=== PATIENT | female | born 1935 | race Caucasian/White ===

== ENCOUNTER 2017-12-02 10:43 | Inpatient (IN) | payer MEDICARE, OTHER ==
[2017-12-02] MEDS ORDERED: ACETAMINOPHEN 325 MG TAB PO (11:30)
[2017-12-02] MEDS ORDERED: ONDANSETRON 4 MG INJ IV ×2 (11:30→17:30)
[2017-12-02 12:20] LABS: WHITE BLOOD COUNT 9.9 10^3/ul (4.8-10.8)
[2017-12-02 12:20] LABS: HEMATOCRIT 29.8 % (37.0-47.0); HEMOGLOBIN 9.2 g/dl (12.0-16.0); MEAN CORPUSCULAR HEMOGLOBIN 30.2 pg (29.0-33.0); MEAN CORPUSCULAR HGB CONC 30.9 g/dl (32.0-37.0); MEAN CORPUSCULAR VOLUME 97.7 fl (82.0-101.0); MEAN PLATELET VOLUME 9.6 fl (7.4-10.4); PLATELET COUNT 402 10^3/UL (140-415); RED BLOOD COUNT 3.05 10^6/ul (4.20-5.40); RED CELL DISTRIBUTION WIDTH 16.7 % (11.5-14.5)
[2017-12-02 12:30] LABS: ADD MAN DIFF? YES; POSITIVE DIFF @See below
[2017-12-02] MEDS: ASPIRIN 81 MG TAB PO (12:38)
[2017-12-02 12:43] LABS: ANION GAP 11 (8-16); BLOOD UREA NITROGEN 20 mg/dl (7-20); CALCIUM 9.4 mg/dl (8.4-10.2); CARBON DIOXIDE 33 mmol/L (21-31); CHLORIDE 93 mmol/L (97-110); CREATININE 0.46 mg/dl (0.44-1.00); GLUCOSE 114 mg/dl (70-220); POTASSIUM 4.4 mmol/L (3.5-5.1); SODIUM 133 mmol/L (135-144)
[2017-12-02 12:56] LABS: TROPONIN-I < 0.012 ng/ml (0.00-0.12)
[2017-12-02 13:22] LABS: ANISOCYTOSIS 1+ (0-0); BAND NEUTROPHILS #M 0.1 10^3/ul (0.0-0.6); BAND NEUTROPHILS % (M) 2 % (0-4); GIANT THROMBO% (M) 2 % (0-0); LYMPHOCYTES #M 2.7 10^3/ul (0.8-2.9); LYMPHOCYTES % (M) 28 % (15-51); MONOCYTE #M 0.4 10^3/ul (0.3-0.9); MONOCYTES % (M) 5 % (0-11); PLATELET ESTIMATE NORMAL; POLYCHROMASIA 2+ (0-0); REACTIVE LYMPHOCYTES #M 0.1 10^3/ul (0.0-0.0); REACTIVE LYMPHOCYTES% (M) 2 % (0-0); SEG NEUT #M 6.2 10^3/ul (1.6-7.5); SEGMENTED NEUTROPHILS (M) % 63 % (39-77); SMUDGE%M 10 % (0-0)
[2017-12-02 17:09] LABS: CREATINE KINASE < 20 IU/L (23-200)
[2017-12-02 17:21] LABS: TROPONIN-I < 0.012 ng/ml (0.00-0.12)
[2017-12-02] MEDS ORDERED: NACL 0.9% 3 ML SYG IV (17:30)
[2017-12-02] MEDS ORDERED: NITROGLYCERIN (SL) 0.4 MG TAB SL (17:30)
[2017-12-02] MEDS ORDERED: DOCUSATE SODIUM 100 MG CAP PO (17:30)
[2017-12-02 17:31] LABS: LACTATE DEHYDROGENASE 377 IU/L (313-618)
[2017-12-02] MEDS: BUSPIRONE 5 MG TAB GTB (21:00)
[2017-12-02] MEDS ORDERED: FAMOTIDINE 20 MG TAB PO (21:00)
[2017-12-02] MEDS: ACETAMINOPHEN 325 MG TAB PO (21:48)
[2017-12-02] MEDS: PANTOPRAZOLE (EC) 40 MG TAB PO (21:48)
[2017-12-02] MEDS: QUETIAPINE 25 MG TAB PO (21:48)
[2017-12-02] MEDS: AL HYDROX/MG HYDROX/SIMETH 30 ML CUP PO (21:49)
[2017-12-02 23:58] LABS: CK-MB 0.63 ng/ml (0.0-2.4)
[2017-12-03 00:02] LABS: CREATINE KINASE < 20 IU/L (23-200); TROPONIN-I < 0.012 ng/ml (0.00-0.12)
[2017-12-03] MEDS: PANTOPRAZOLE (EC) 40 MG TAB PO (06:45)
[2017-12-03] MEDS: LEVOTHYROXINE 75 MCG TAB PO (06:45)
[2017-12-03] MEDS ORDERED: PENDING SANTYL ORDER FOR WOUND CARE XX (08:00)
[2017-12-03 08:32] LABS: ADD MAN DIFF? NO
[2017-12-03 08:38] LABS: BASOPHILS % 0.2 % (0.0-2.0); EOSINOPHILS # 0.2 10^3/ul (0.0-0.5); EOSINOPHILS % 2.2 % (0.0-7.0); MEAN CORPUSCULAR HEMOGLOBIN 30.2 pg (29.0-33.0); MEAN CORPUSCULAR HGB CONC 30.8 g/dl (32.0-37.0); MEAN CORPUSCULAR VOLUME 98.1 fl (82.0-101.0); MEAN PLATELET VOLUME 9.8 fl (7.4-10.4); MONOCYTE # 0.7 10^3/ul (0.3-0.9); MONOCYTES % 8.2 % (0.0-11.0); NEUTROPHIL # 4.8 10^3/ul (1.6-7.5); NEUTROPHILS % 54.4 % (39.0-77.0); PLATELET COUNT 346 10^3/UL (140-415); RED BLOOD COUNT 2.65 10^6/ul (4.20-5.40); RED CELL DISTRIBUTION WIDTH 17.1 % (11.5-14.5)
[2017-12-03 08:38] LABS: WHITE BLOOD COUNT 8.8 10^3/ul (4.8-10.8)
[2017-12-03] MEDS: ASPIRIN 81 MG TAB PO (08:39)
[2017-12-03] MEDS: BUSPIRONE 5 MG TAB GTB ×2 (08:39→21:12)
[2017-12-03 09:06] LABS: ALANINE AMINOTRANSFERASE 28 IU/L (13-69); ALBUMIN/GLOBULIN RATIO 0.78; ALKALINE PHOSPHATASE 91 IU/L (42-121); ANION GAP 10 (8-16); ASPARTATE AMINO TRANSFERASE 21 IU/L (15-46); BLOOD UREA NITROGEN 20 mg/dl (7-20); CARBON DIOXIDE 31 mmol/L (21-31); CHLORIDE 98 mmol/L (97-110); CREATININE 0.53 mg/dl (0.44-1.00); GLUCOSE 130 mg/dl (70-220); MAGNESIUM 1.9 mg/dl (1.7-2.5); SODIUM 135 mmol/L (135-144); TOTAL PROTEIN 6.8 g/dl (6.1-8.1)
[2017-12-03] MEDS: COLLAGENASE 30 GM TUBE TOP (16:41)
[2017-12-03] MEDS: QUETIAPINE 25 MG TAB PO (21:12)
[2017-12-03] MEDS: ACETAMINOPHEN 325 MG TAB PO (21:17)
[2017-12-04] MEDS: PANTOPRAZOLE (EC) 40 MG TAB PO (06:14)
[2017-12-04] MEDS: LEVOTHYROXINE 75 MCG TAB PO (06:14)
[2017-12-04 08:18] LABS: ADD MAN DIFF? NO
[2017-12-04 08:51] LABS: IRON 27 ug/dl (35-150)
[2017-12-04 08:55] LABS: ANION GAP 12 (8-16); BLOOD UREA NITROGEN 18 mg/dl (7-20); CALCIUM 8.9 mg/dl (8.4-10.2); CARBON DIOXIDE 27 mmol/L (21-31); CHLORIDE 102 mmol/L (97-110); CREATININE 0.44 mg/dl (0.44-1.00); GLUCOSE 127 mg/dl (70-220); LACTATE DEHYDROGENASE 467 IU/L (313-618); POTASSIUM 4.1 mmol/L (3.5-5.1); SODIUM 137 mmol/L (135-144)
[2017-12-04] MEDS: ASPIRIN 81 MG TAB PO (08:57)
[2017-12-04] MEDS: ACETAMINOPHEN 325 MG TAB PO ×2 (08:57→20:26)
[2017-12-04] MEDS: BUSPIRONE 5 MG TAB GTB ×2 (08:57→20:28)
[2017-12-04 09:00] LABS: % IRON SATURATION 12 % SAT (22-52); TOTAL IRON BINDING CAPACITY 224 ug/dl (241-421)
[2017-12-04 09:56] LABS: FOLATE > 20.0 ng/ml (2.8-20.0)
[2017-12-04 10:19] LABS: BASOPHILS % 0.2 % (0.0-2.0); EOSINOPHILS # 0.2 10^3/ul (0.0-0.5); EOSINOPHILS % 2.4 % (0.0-7.0); HEMOGLOBIN 8.3 g/dl (12.0-16.0); LYMPHOCYTES % 36.2 % (15.0-51.0); MEAN CORPUSCULAR HEMOGLOBIN 30.5 pg (29.0-33.0); MEAN CORPUSCULAR HGB CONC 30.7 g/dl (32.0-37.0); MEAN CORPUSCULAR VOLUME 99.3 fl (82.0-101.0); MEAN PLATELET VOLUME 9.9 fl (7.4-10.4); MONOCYTE # 0.8 10^3/ul (0.3-0.9); MONOCYTES % 9.6 % (0.0-11.0); NEUTROPHIL # 4.2 10^3/ul (1.6-7.5); NEUTROPHILS % 50.9 % (39.0-77.0); PLATELET COUNT 303 10^3/UL (140-415); RED BLOOD COUNT 2.72 10^6/ul (4.20-5.40)
[2017-12-04 10:19] LABS: WHITE BLOOD COUNT 8.3 10^3/ul (4.8-10.8)
[2017-12-04] MEDS: COLLAGENASE 30 GM TUBE TOP (14:08)
[2017-12-04] MEDS: NYSTATIN SUSP 5 ML CUP PO ×3 (15:57→20:15)
[2017-12-04 17:34] LABS: OCCULT BLOOD STOOL NEGATIVE (NEGATIVE)
[2017-12-04] MEDS: QUETIAPINE 25 MG TAB PO (20:27)
[2017-12-04] MEDS: AL HYDROX/MG HYDROX/SIMETH 30 ML CUP PO (20:28)
[2017-12-04] MEDS: LORAZEPAM 0.5 MG TAB PO (21:52)
[2017-12-05] MEDS: morphine 2 MG INJ IV (01:58)
[2017-12-05] MEDS: PANTOPRAZOLE (EC) 40 MG TAB PO (06:35)
[2017-12-05] MEDS: LEVOTHYROXINE 75 MCG TAB PO (06:35)
[2017-12-05 08:19] LABS: ADD MAN DIFF? NO
[2017-12-05 08:28] LABS: WHITE BLOOD COUNT 8.8 10^3/ul (4.8-10.8)
[2017-12-05 08:28] LABS: BASOPHILS % 0.3 % (0.0-2.0); EOSINOPHILS # 0.2 10^3/ul (0.0-0.5); EOSINOPHILS % 2.2 % (0.0-7.0); HEMATOCRIT 26.2 % (37.0-47.0); HEMOGLOBIN 8.1 g/dl (12.0-16.0); LYMPHOCYTES # 2.8 10^3/ul (0.8-2.9); LYMPHOCYTES % 32.5 % (15.0-51.0); MEAN CORPUSCULAR HEMOGLOBIN 30.6 pg (29.0-33.0); MEAN CORPUSCULAR HGB CONC 30.9 g/dl (32.0-37.0); MEAN CORPUSCULAR VOLUME 98.9 fl (82.0-101.0); MEAN PLATELET VOLUME 10.2 fl (7.4-10.4); MONOCYTE # 0.7 10^3/ul (0.3-0.9); MONOCYTES % 8.1 % (0.0-11.0); NEUTROPHIL # 4.9 10^3/ul (1.6-7.5); NEUTROPHILS % 56.3 % (39.0-77.0); PLATELET COUNT 288 10^3/UL (140-415); RED BLOOD COUNT 2.65 10^6/ul (4.20-5.40); RED CELL DISTRIBUTION WIDTH 16.7 % (11.5-14.5)
[2017-12-05 08:45] LABS: ANION GAP 11 (8-16); BLOOD UREA NITROGEN 17 mg/dl (7-20); CALCIUM 8.8 mg/dl (8.4-10.2); CARBON DIOXIDE 27 mmol/L (21-31); CHLORIDE 104 mmol/L (97-110); CREATININE 0.49 mg/dl (0.44-1.00); GLUCOSE 123 mg/dl (70-220); POTASSIUM 3.9 mmol/L (3.5-5.1); SODIUM 138 mmol/L (135-144)
[2017-12-05] MEDS: ASPIRIN 81 MG TAB PO (08:59)
[2017-12-05] MEDS: NYSTATIN SUSP 5 ML CUP PO ×4 (08:59→21:19)
[2017-12-05] MEDS: BUSPIRONE 5 MG TAB GTB ×2 (08:59→21:18)
[2017-12-05 11:45] LABS: B-TYPE NATRIURETIC PEPTIDE 216 PG/ML (0-450)
[2017-12-05] MEDS: FUROSEMIDE 20 MG INJ IV (12:31)
[2017-12-05] MEDS: COLLAGENASE 30 GM TUBE TOP (12:33)
[2017-12-05] MEDS: ACETAMINOPHEN 325 MG TAB PO (21:18)
[2017-12-05] MEDS: LORAZEPAM 0.5 MG TAB PO (21:19)
[2017-12-05] MEDS: QUETIAPINE 25 MG TAB PO (21:19)
[2017-12-05] MEDS: QUETIAPINE 25 MG TAB GTB (22:44)
[2017-12-06] MEDS: morphine LIQ (10 MG/5 ML) CUP PO (00:16)
[2017-12-06] MEDS: LORAZEPAM 0.5 MG TAB PO ×2 (03:47→21:07)
[2017-12-06] MEDS: AL HYDROX/MG HYDROX/SIMETH 30 ML CUP PO ×2 (03:47→21:09)
[2017-12-06] MEDS: ACETAMINOPHEN 325 MG TAB PO ×2 (03:47→21:06)
[2017-12-06] MEDS: LANSOPRAZOLE 30 MG CAP GTB ×2 (05:50→17:26)
[2017-12-06] MEDS: LEVOTHYROXINE 75 MCG TAB PO (05:51)
[2017-12-06] MEDS: COLLAGENASE 30 GM TUBE TOP (09:00)
[2017-12-06 09:28] LABS: ADD MAN DIFF? NO
[2017-12-06 09:32] LABS: WHITE BLOOD COUNT 8.3 10^3/ul (4.8-10.8)
[2017-12-06 09:32] LABS: BASOPHILS % 0.5 % (0.0-2.0); EOSINOPHILS # 0.2 10^3/ul (0.0-0.5); EOSINOPHILS % 2.5 % (0.0-7.0); HEMATOCRIT 27.7 % (37.0-47.0); HEMOGLOBIN 8.5 g/dl (12.0-16.0); LYMPHOCYTES % 36.7 % (15.0-51.0); MEAN CORPUSCULAR HEMOGLOBIN 30.2 pg (29.0-33.0); MEAN CORPUSCULAR HGB CONC 30.7 g/dl (32.0-37.0); MEAN CORPUSCULAR VOLUME 98.6 fl (82.0-101.0); MEAN PLATELET VOLUME 10.5 fl (7.4-10.4); MONOCYTE # 0.7 10^3/ul (0.3-0.9); MONOCYTES % 8.8 % (0.0-11.0); NEUTROPHIL # 4.2 10^3/ul (1.6-7.5); NEUTROPHILS % 50.8 % (39.0-77.0); PLATELET COUNT 275 10^3/UL (140-415); RED BLOOD COUNT 2.81 10^6/ul (4.20-5.40); RED CELL DISTRIBUTION WIDTH 16.4 % (11.5-14.5)
[2017-12-06 09:55] LABS: ANION GAP 11 (8-16); BLOOD UREA NITROGEN 21 mg/dl (7-20); CALCIUM 9.1 mg/dl (8.4-10.2); CARBON DIOXIDE 28 mmol/L (21-31); CHLORIDE 102 mmol/L (97-110); GLUCOSE 123 mg/dl (70-220); POTASSIUM 4.1 mmol/L (3.5-5.1); SODIUM 137 mmol/L (135-144)
[2017-12-06] MEDS: NYSTATIN SUSP 5 ML CUP PO ×4 (10:15→21:09)
[2017-12-06] MEDS: ASPIRIN 81 MG TAB PO (10:15)
[2017-12-06] MEDS: BUSPIRONE 5 MG TAB GTB ×2 (10:15→21:08)
[2017-12-06] MEDS: QUETIAPINE 100 MG TAB PO (21:08)
[2017-12-07] MEDS: LANSOPRAZOLE 30 MG CAP GTB ×2 (06:07→18:56)
[2017-12-07] MEDS: LEVOTHYROXINE 75 MCG TAB PO (06:07)
[2017-12-07] MEDS: AL HYDROX/MG HYDROX/SIMETH 30 ML CUP PO ×2 (06:07→18:59)
[2017-12-07] MEDS: LORAZEPAM 0.5 MG TAB PO ×2 (06:14→21:52)
[2017-12-07] MEDS: NYSTATIN SUSP 5 ML CUP PO ×4 (09:10→19:55)
[2017-12-07] MEDS: BUSPIRONE 5 MG TAB GTB ×2 (09:11→19:56)
[2017-12-07] MEDS: ASPIRIN 81 MG TAB PO (09:11)
[2017-12-07] MEDS: COLLAGENASE 30 GM TUBE TOP (09:12)
[2017-12-07 11:44] LABS: ADD MAN DIFF? NO
[2017-12-07 11:47] LABS: WHITE BLOOD COUNT 9.4 10^3/ul (4.8-10.8)
[2017-12-07 11:47] LABS: BASOPHILS % 0.2 % (0.0-2.0); EOSINOPHILS # 0.2 10^3/ul (0.0-0.5); EOSINOPHILS % 2.2 % (0.0-7.0); HEMATOCRIT 27.6 % (37.0-47.0); HEMOGLOBIN 8.5 g/dl (12.0-16.0); LYMPHOCYTES # 3.2 10^3/ul (0.8-2.9); LYMPHOCYTES % 33.9 % (15.0-51.0); MEAN CORPUSCULAR HEMOGLOBIN 30.2 pg (29.0-33.0); MEAN CORPUSCULAR HGB CONC 30.8 g/dl (32.0-37.0); MEAN CORPUSCULAR VOLUME 98.2 fl (82.0-101.0); MEAN PLATELET VOLUME 10.6 fl (7.4-10.4); MONOCYTE # 0.9 10^3/ul (0.3-0.9); MONOCYTES % 9.5 % (0.0-11.0); NEUTROPHILS % 53.6 % (39.0-77.0); PLATELET COUNT 279 10^3/UL (140-415); RED BLOOD COUNT 2.81 10^6/ul (4.20-5.40); RED CELL DISTRIBUTION WIDTH 16.2 % (11.5-14.5)
[2017-12-07 12:19] LABS: ANION GAP 13 (8-16); BLOOD UREA NITROGEN 19 mg/dl (7-20); CARBON DIOXIDE 25 mmol/L (21-31); CHLORIDE 104 mmol/L (97-110); CREATININE 0.47 mg/dl (0.44-1.00); GLUCOSE 119 mg/dl (70-220); POTASSIUM 4.5 mmol/L (3.5-5.1); SODIUM 137 mmol/L (135-144)
[2017-12-07] MEDS: ARTIFICIAL TEARS 15 ML OPH BOTH EYES ×2 (18:56→19:59)
[2017-12-07] MEDS: QUETIAPINE 100 MG TAB PO (19:55)
[2017-12-07] MEDS: ACETAMINOPHEN 325 MG TAB PO (19:59)
[2017-12-08] MEDS: ACETAMINOPHEN 325 MG TAB PO ×2 (02:55→21:26)
[2017-12-08] MEDS: LANSOPRAZOLE 30 MG CAP GTB ×2 (05:53→18:11)
[2017-12-08] MEDS: LEVOTHYROXINE 75 MCG TAB PO (05:53)
[2017-12-08] MEDS: AL HYDROX/MG HYDROX/SIMETH 30 ML CUP PO ×2 (08:47→21:26)
[2017-12-08] MEDS: FUROSEMIDE 20 MG TAB PO (08:47)
[2017-12-08] MEDS: NYSTATIN SUSP 5 ML CUP PO ×4 (08:47→20:57)
[2017-12-08] MEDS: ASCORBIC ACID 500 MG TAB PO (08:47)
[2017-12-08] MEDS: BUSPIRONE 5 MG TAB GTB ×2 (08:48→20:58)
[2017-12-08] MEDS: MULTIVITAMINS/MINERALS TAB PO (08:48)
[2017-12-08] MEDS: ARTIFICIAL TEARS 15 ML OPH BOTH EYES ×4 (08:48→20:59)
[2017-12-08] MEDS: COLLAGENASE 30 GM TUBE TOP (08:48)
[2017-12-08] MEDS: ASPIRIN 81 MG TAB PO (08:48)
[2017-12-08 12:24] LABS: ADD MAN DIFF? NO
[2017-12-08 12:30] LABS: BASOPHILS % 0.2 % (0.0-2.0); EOSINOPHILS # 0.2 10^3/ul (0.0-0.5); EOSINOPHILS % 2.6 % (0.0-7.0); HEMATOCRIT 26.8 % (37.0-47.0); HEMOGLOBIN 8.2 g/dl (12.0-16.0); LYMPHOCYTES # 2.5 10^3/ul (0.8-2.9); LYMPHOCYTES % 30.8 % (15.0-51.0); MEAN CORPUSCULAR HEMOGLOBIN 30.5 pg (29.0-33.0); MEAN CORPUSCULAR HGB CONC 30.6 g/dl (32.0-37.0); MEAN CORPUSCULAR VOLUME 99.6 fl (82.0-101.0); MONOCYTE # 0.7 10^3/ul (0.3-0.9); MONOCYTES % 8.2 % (0.0-11.0); NEUTROPHIL # 4.7 10^3/ul (1.6-7.5); NEUTROPHILS % 57.6 % (39.0-77.0); PLATELET COUNT 267 10^3/UL (140-415); RED BLOOD COUNT 2.69 10^6/ul (4.20-5.40); RED CELL DISTRIBUTION WIDTH 15.9 % (11.5-14.5); RETICULOCYTE COUNT # 0.086 X10^6 (0.020-0.110); RETICULOCYTE COUNT % 3.1 % (0.5-1.5)
[2017-12-08 12:30] LABS: RETICULOCYTE RBC 2.78; WHITE BLOOD COUNT 8.2 10^3/ul (4.8-10.8)
[2017-12-08 12:52] LABS: LACTATE DEHYDROGENASE 351 IU/L (313-618)
[2017-12-08 12:53] LABS: ANION GAP 14 (8-16); BLOOD UREA NITROGEN 18 mg/dl (7-20); CARBON DIOXIDE 27 mmol/L (21-31); CHLORIDE 104 mmol/L (97-110); GLUCOSE 132 mg/dl (70-220); POTASSIUM 4.3 mmol/L (3.5-5.1); SODIUM 141 mmol/L (135-144)
[2017-12-08 13:24] LABS: THYROID STIMULATING HORMONE 0.201 MIU/L (0.465-4.680)
[2017-12-08 13:46] LABS: ERYTHROCYTE SEDIMENTATION RATE 104 mm/Hr (0-30)
[2017-12-08 14:11] LABS: IRON 31 ug/dl (35-150)
[2017-12-08 14:13] LABS: CARCINOEMBRYONIC ANTIGEN 2.1 ng/ml (0.0-5.0)
[2017-12-08 14:20] LABS: % IRON SATURATION 13 % SAT (22-52); TOTAL IRON BINDING CAPACITY 230 ug/dl (241-421)
[2017-12-08 16:07] LABS: FOLATE > 20.0 ng/ml (2.8-20.0)
[2017-12-08] MEDS: LORAZEPAM 0.5 MG TAB PO (20:58)
[2017-12-08] MEDS: QUETIAPINE 100 MG TAB PO (20:58)
[2017-12-09] MEDS: LANSOPRAZOLE 30 MG CAP GTB ×2 (05:24→18:59)
[2017-12-09] MEDS: LEVOTHYROXINE 75 MCG TAB PO (05:24)
[2017-12-09] MEDS: LORAZEPAM 0.5 MG TAB PO ×2 (05:30→22:51)
[2017-12-09 07:21] LABS: ADD MAN DIFF? NO
[2017-12-09 07:34] LABS: BASOPHILS % 0.3 % (0.0-2.0); EOSINOPHILS # 0.2 10^3/ul (0.0-0.5); EOSINOPHILS % 2.1 % (0.0-7.0); HEMATOCRIT 26.5 % (37.0-47.0); HEMOGLOBIN 8.2 g/dl (12.0-16.0); LYMPHOCYTES # 3.2 10^3/ul (0.8-2.9); LYMPHOCYTES % 34.1 % (15.0-51.0); MEAN CORPUSCULAR HEMOGLOBIN 30.7 pg (29.0-33.0); MEAN CORPUSCULAR HGB CONC 30.9 g/dl (32.0-37.0); MEAN CORPUSCULAR VOLUME 99.3 fl (82.0-101.0); MEAN PLATELET VOLUME 10.8 fl (7.4-10.4); MONOCYTES % 10.2 % (0.0-11.0); NEUTROPHILS % 52.6 % (39.0-77.0); PLATELET COUNT 255 10^3/UL (140-415); RED BLOOD COUNT 2.67 10^6/ul (4.20-5.40); RED CELL DISTRIBUTION WIDTH 15.9 % (11.5-14.5)
[2017-12-09 07:34] LABS: WHITE BLOOD COUNT 9.5 10^3/ul (4.8-10.8)
[2017-12-09 07:57] LABS: ANION GAP 10 (8-16); BLOOD UREA NITROGEN 21 mg/dl (7-20); CALCIUM 9.1 mg/dl (8.4-10.2); CARBON DIOXIDE 30 mmol/L (21-31); CHLORIDE 103 mmol/L (97-110); CREATININE 0.49 mg/dl (0.44-1.00); GLUCOSE 105 mg/dl (70-220); POTASSIUM 4.4 mmol/L (3.5-5.1); SODIUM 139 mmol/L (135-144)
[2017-12-09] MEDS: ASCORBIC ACID 500 MG TAB PO (08:30)
[2017-12-09] MEDS: ASPIRIN 81 MG TAB PO (08:30)
[2017-12-09] MEDS: MULTIVITAMINS/MINERALS TAB PO (08:30)
[2017-12-09] MEDS: NYSTATIN SUSP 5 ML CUP PO ×4 (08:31→20:45)
[2017-12-09] MEDS: FUROSEMIDE 20 MG TAB PO (08:31)
[2017-12-09] MEDS: BUSPIRONE 5 MG TAB GTB ×2 (08:31→20:46)
[2017-12-09] MEDS: ARTIFICIAL TEARS 15 ML OPH BOTH EYES ×4 (08:32→20:46)
[2017-12-09] MEDS: COLLAGENASE 30 GM TUBE TOP (08:34)
[2017-12-09] MEDS: ACETAMINOPHEN 325 MG TAB PO (13:03)
[2017-12-09] MEDS: traZODone 50 MG TAB PO (20:45)
[2017-12-09] MEDS: QUETIAPINE 100 MG TAB PO (20:46)
[2017-12-10 00:42] LABS: PROTEIN, TOTAL 7.2 g/dL (6.1-8.1)
[2017-12-10 06:13] LABS: ADD MAN DIFF? NO
[2017-12-10] MEDS: LEVOTHYROXINE 50 MCG TAB GTB (06:17)
[2017-12-10] MEDS: LANSOPRAZOLE 30 MG CAP GTB ×2 (06:17→17:16)
[2017-12-10 06:46] LABS: BASOPHILS % 0.4 % (0.0-2.0); EOSINOPHILS # 0.2 10^3/ul (0.0-0.5); EOSINOPHILS % 1.9 % (0.0-7.0); HEMATOCRIT 27.4 % (37.0-47.0); HEMOGLOBIN 8.5 g/dl (12.0-16.0); LYMPHOCYTES # 2.8 10^3/ul (0.8-2.9); MEAN CORPUSCULAR HEMOGLOBIN 30.4 pg (29.0-33.0); MEAN CORPUSCULAR VOLUME 97.9 fl (82.0-101.0); MEAN PLATELET VOLUME 11.1 fl (7.4-10.4); MONOCYTE # 0.9 10^3/ul (0.3-0.9); MONOCYTES % 9.9 % (0.0-11.0); NEUTROPHILS % 55.8 % (39.0-77.0); PLATELET COUNT 275 10^3/UL (140-415); RED CELL DISTRIBUTION WIDTH 15.5 % (11.5-14.5)
[2017-12-10] MEDS ORDERED: LEVOTHYROXINE 75 MCG TAB GTB (07:00)
[2017-12-10 07:11] LABS: ANION GAP 12 (8-16); BLOOD UREA NITROGEN 21 mg/dl (7-20); CARBON DIOXIDE 27 mmol/L (21-31); CHLORIDE 104 mmol/L (97-110); CREATININE 0.52 mg/dl (0.44-1.00); GLUCOSE 121 mg/dl (70-220); POTASSIUM 3.9 mmol/L (3.5-5.1); SODIUM 139 mmol/L (135-144)
[2017-12-10] MEDS: ARTIFICIAL TEARS 15 ML OPH BOTH EYES ×4 (09:17→21:21)
[2017-12-10] MEDS: FUROSEMIDE 20 MG TAB PO (09:18)
[2017-12-10] MEDS: BUSPIRONE 5 MG TAB GTB (09:18)
[2017-12-10] MEDS: ASPIRIN 81 MG TAB PO (09:19)
[2017-12-10] MEDS: COLLAGENASE 30 GM TUBE TOP (09:19)
[2017-12-10] MEDS: NYSTATIN SUSP 5 ML CUP PO ×4 (09:19→21:21)
[2017-12-10] MEDS: ASCORBIC ACID 500 MG TAB PO (09:19)
[2017-12-10] MEDS: ACETAMINOPHEN 325 MG TAB PO ×2 (09:25→21:21)
[2017-12-10] MEDS: MULTIVITAMINS/MINERALS TAB PO (09:25)
[2017-12-10] MEDS: morphine LIQ (10 MG/5 ML) CUP PO (13:32)
[2017-12-10 18:52] LABS: ALPHA-1-GLOBULINS 0.5 g/dL (0.2-0.3); ALPHA-2-GLOBULINS 0.9 g/dL (0.5-0.9); BETA 2 GLOBULINS 0.4 g/dL (0.2-0.5); BETA GLOBULINS 0.4 g/dL (0.4-0.6); GAMMA GLOBULINS 2.1 g/dL (0.8-1.7)
[2017-12-10] MEDS: QUETIAPINE 100 MG TAB PO (21:19)
[2017-12-10] MEDS: traZODone 50 MG TAB PO (21:20)
[2017-12-11] MEDS: LORAZEPAM 0.5 MG TAB PO (00:22)
[2017-12-11] MEDS: BUSPIRONE 5 MG TAB GTB ×2 (00:22→10:02)
[2017-12-11] MEDS: LANSOPRAZOLE 30 MG CAP GTB (05:40)
[2017-12-11] MEDS: LEVOTHYROXINE 50 MCG TAB GTB (05:40)
[2017-12-11] MEDS: COLLAGENASE 30 GM TUBE TOP (09:00)
[2017-12-11] MEDS: FUROSEMIDE 20 MG TAB PO (10:02)
[2017-12-11] MEDS: ASPIRIN 81 MG TAB PO (10:02)
[2017-12-11] MEDS: ASCORBIC ACID 500 MG TAB PO (10:03)
[2017-12-11] MEDS: ARTIFICIAL TEARS 15 ML OPH BOTH EYES ×2 (10:03→15:30)
[2017-12-11] MEDS: MULTIVITAMINS/MINERALS TAB PO (10:09)
[2017-12-11] MEDS: NYSTATIN SUSP 5 ML CUP PO ×2 (10:15→15:30)
[2017-12-11] MEDS: ACETAMINOPHEN 325 MG TAB PO ×2 (10:18→15:30)
== END 2017-12-11 17:50 | DRG 313 ==
LOC: E/R 10:43 → TEL 11:11
PROC: 5A1955Z Respiratory Ventilation, Greater than 96 Consecutive Hours (ICD-10-PCS; principal; 2017-12-03)
DX: R07.9 Chest pain, unspecified (principal); I50.33 Acute on chronic diastolic (congestive) heart failure; J96.10 Chronic respiratory failure, unspecified whether with hypoxia or hypercapnia; Z93.0 Tracheostomy status; R13.10 Dysphagia, unspecified; I69.351 Hemiplegia and hemiparesis following cerebral infarction affecting right dominant side; Z74.01 Bed confinement status; Z93.1 Gastrostomy status; I11.0 Hypertensive heart disease with heart failure; E03.9 Hypothyroidism, unspecified; D64.9 Anemia, unspecified; I73.9 Peripheral vascular disease, unspecified; G62.9 Polyneuropathy, unspecified; Z89.422 Acquired absence of other left toe(s); R73.03 Prediabetes; R79.89 Other specified abnormal findings of blood chemistry
CPT/HCPCS: 36415; 71045; 80048; 80053; 82270; 82306; 82378; 82550; 82553; 82607; 82728; 82746; 83540; 83615; 83735; 83880; 84155; 84165; 84443; 84484; 84560; 85025; 85045; 85651; 87040; 87081; 93005; 93306; 94002; 94003; 99285-25; G0378; J1940